=== PATIENT | female | born 1965 | race Caucasian/White ===

== ENCOUNTER 2020-09-01 19:01 | Emergency (ER) | payer MEDICAID ==
[~2020-09-01] VITALS: Ht 172.7 cm; Wt 65.3 kg
[2020-09-01 19:06] VITALS: BP_SYST 114
--- NOTE | 2020-09-01 19:15 | NUR ---
Patient triaged and placed in waiting room. VSS and patient appears in no acute distress at this time. Accompanied by extension work instructor, awaiting available bed, and MD notified of need for MSE.
--- NOTE | 2020-09-01 21:43 | NUR ---
Patient to ER bed esparza to gown for evaluation. Side rails up. Report given to iveth ROUSE(registry).
--- NOTE | 2020-09-01 22:00 | NUR ---
U CHECK 367PT REPORT FROM [facility]; PT AOX4 RESP EVEN ACCU CHECK 367 AND REPORTED IV LT AC 20G INSERTED ENROUTE NS 250ML GIVEN ENROUTE PT NOT TAKING MEDS PT STATES FELL IN MAY 29 HIT HEAD NOT TREATED AND ABD PAIN INTERMITTENT SINCE
[2020-09-01] MEDS ORDERED: ONDANSETRON HCL 4 MG/2 ML VIAL IVP ONE (22:30)
[2020-09-01] MEDS ORDERED: NACL 0.9% 1,000 ML IV ONE (22:30)
--- NOTE | 2020-09-01 22:41 | NUR ---
NS 1000ml IV BOLUS STARTED ZOFRAN 4MG IVP GIVEN IV LT AC 20 G PATENT
[2020-09-01 22:46] LABS: BASOPHILS # (AUTO) 0.1 K/uL (0.0-0.2); BASOPHILS % (AUTO) 0.7 % (0.0-2.0); EOSINOPHILS # (AUTO) 0.1 K/uL (0.0-0.4); EOSINOPHILS % (AUTO) 0.7 % (0.0-4.0); HEMATOCRIT 44.8 % (36-48); HEMOGLOBIN 15.6 g/dL (12.0-16.0); LYMPHOCYTES # (AUTO) 2.7 K/uL (1.0-5.5); LYMPHOCYTES % (AUTO) 34.4 % (20.5-51.5); MEAN CORPUSCULAR HEMOGLOBIN 29 pg (27-31); MEAN CORPUSCULAR HGB CONC 35 % (32-36); MEAN CORPUSCULAR VOLUME 84 fL (79.0-98.0); MONOCYTES # (AUTO) 0.5 K/uL (0.0-1.0); MONOCYTES % (AUTO) 6.6 % (1.7-9.3); NEUTROPHILS # (AUTO) 4.5 K/uL (1.8-7.7); NEUTROPHILS % (AUTO) 57.6 % (40.0-70.0); PLATELET COUNT (AUTO) 300 K/uL (130-430); RED BLOOD CELL COUNT(AUTO) 5.33 MIL/uL (4.2-6.2); WHITE BLOOD COUNT (AUTO) 7.8 K/uL (4.8-10.8)
--- NOTE | 2020-09-01 22:56 | NUR ---
PT DOES NOT TAKE HER MEDS ; METFORMAN,LISINOPRIL,CHOLESTEROL MED ,HTN MED
[2020-09-01 23:05] LABS: ALBUMIN 3.2 g/dL (3.4-4.8); CALCIUM 8.7 mg/dL (8.4-11.0); CREATININE 0.52 mg/dL (0.55-1.30); POTASSIUM 3.9 mmol/L (3.5-5.1); TOTAL BILIRUBIN 0.3 mg/dL (0.0-1.0)
--- NOTE | 2020-09-01 23:15 | NUR ---
Pt provided urine sample, well tolerated. sent to lab
[2020-09-01 23:19] LABS: BILIRUBIN,URINE NEGATIVE (NEGATIVE); BLOOD, URINE NEGATIVE (NEGATIVE); CLARITY/URINE CLEAR (CLEAR); COLOR,URINE YELLOW (YELLOW); GLUCOSE,URINE 3+ (NEGATIVE); KETONES,URINE NEGATIVE (NEGATIVE); LEUKOCYTE ESTERASE ,URINE NEGATIVE (NEGATIVE); NITRITE, URINE NEGATIVE (NEGATIVE); PROTEIN URINE NEGATIVE (NEGATIVE)
[2020-09-01] MEDS ORDERED: INSULIN REGULAR, HUMAN 10 UNITS/0.1 ML INJ SUBCUT ONE (23:45)
--- NOTE | 2020-09-02 00:19 | NUR ---
DR SWEENEY to review dischg care PT UNDERSTANDS IV DCD AND SITE WNL AOX4 RESP EVEN TO WAITING RM FOR FAMILY TO DRIVE HOME STABLE
[2020-09-02 00:24] VITALS: BP_SYST 132
== END 2020-09-02 00:19 | disposition home or self-care (01) ==
LOC: SED 19:01
DX: K59.00 Constipation, unspecified (principal); E11.65 Type 2 diabetes mellitus with hyperglycemia; I10 Essential (primary) hypertension; K21.9 Gastro-esophageal reflux disease without esophagitis
CPT/HCPCS: 36415; 80053; 81003; 82962; 83690; 85025; 96361; 96372; 96374; 99284; J1815; J2405; J7030